=== PATIENT | female | born 1990 | race Caucasian/White ===

== ENCOUNTER 2017-10-21 23:49 | Inpatient (IN) | payer OTHER ==
[2017-10-22] MEDS ORDERED: LR 1,000 ML IV (01:04)
[2017-10-22] MEDS: LACTATED RINGER'S 1000 ML IV (01:15)
[2017-10-22] MEDS: PENICILLIN G POTASSIUM IV 5 MU in D5W MINI-BAG PLUS 100 ML IV (01:30)
[2017-10-22 01:31] LABS: HEMATOCRIT 35.5 % (36.0-47.0); HEMOGLOBIN 11.8 g/dl (12.0-15.5); MEAN CORPUSCULAR HEMOGLOBIN 28.5 pg (27.0-33.0); MEAN CORPUSCULAR HGB CONC 33.2 g/dl (32.0-36.5); MEAN CORPUSCULAR VOLUME 85.7 fl (80.0-96.0); PLATELET COUNT, AUTOMATED 255 10^3/uL (150-450); RED BLOOD COUNT 4.14 10^6/uL (4.00-5.40); RED CELL DISTRIBUTION WIDTH 13.5 % (11.5-14.5); WHITE BLOOD COUNT 11.2 10^3/uL (4.0-10.0)
[2017-10-22] MEDS ORDERED: PENICILLIN G POTASSIUM 5 MU VIAL As Ordered (01:38)
[2017-10-22] MEDS ORDERED: FENTANYL 2MCG/ML ROPIVACAINE 0.2% IN 0.9% NACL 200ML IVBAG As Ordered (03:10)
[2017-10-22] MEDS ORDERED: OXYTOCIN 30 UNITS IN 0.9% NaCl 500ML IV BAG (J2590) As Ordered (05:28)
[2017-10-22] MEDS ORDERED: PENICILLIN G POTASSIUM IV 2.5 MU in APPROPRIATE DILUENT 1 EA IV (05:30)
[2017-10-22 07:13] LABS: CORD GAS ABE V -9.2; CORD GAS HCO3 V 20.1 MEQ/L; CORD GAS O2 SAT V 37.5 %; CORD GAS PH V 7.172 UNITS; CORD GAS PO2 V 23.3 mmHg; CORD GAS SBC V 15.9 MEQ/L; CORD GAS TCO2 V 21.8 MEQ/L
[2017-10-22 07:15] LABS: CORD GAS ABE A -14.2; CORD GAS HCO3 A 18.1 MEQ/L; CORD GAS O2 SAT A 27.2 %; CORD GAS PCO2 A 71.8 mmHg; CORD GAS PH A 7.019 UNITS; CORD GAS PO2 A 22.9 mmHg; CORD GAS SBC A 12.5 MEQ/L; CORD GAS TCO2 A 20.3 MEQ/L
[2017-10-22] MEDS ORDERED: OXYTOCIN DRIP 30 UNITS in APPROPRIATE DILUENT 1 EA IV (07:59)
[2017-10-22] MEDS ORDERED: METHYLERGONOVINE MALEATE 0.2 MG TAB PO (08:00)
[2017-10-22] MEDS ORDERED: MEASLES,MUMPS,RUBELLA VACCINE INJ (MMR-II) (90707) SC (08:00)
[2017-10-22] MEDS ORDERED: MOM 30ML SUSPENSION UDC PO (08:00)
[2017-10-22] MEDS ORDERED: OXYTOCIN INJ 10 UNITS/ML VIAL (J2590) IV (08:00)
[2017-10-22] MEDS ORDERED: ANUSOL HC CREAM 30GM TOP (08:00)
[2017-10-22] MEDS ORDERED: RHOGAM 300 MCG (1500 IU) INJ (J2790) IM (08:00)
[2017-10-22] MEDS: IBUPROFEN 800 MG TAB PO ×2 (11:51→23:02)
[2017-10-22] MEDS ORDERED: OXYTOCIN INJ 10 UNITS/ML VIAL (J2590) As Ordered (15:45)
[2017-10-22] MEDS: ACETAMINOPHEN 500 MG TAB PO ×2 (15:51→23:03)
[2017-10-22] MEDS: DOCUSATE SODIUM 100 MG CAP PO (19:42)
[2017-10-22] MEDS: PRENATAL VITAMINS CHEWABLE TABLET PO (19:42)
[2017-10-22] MEDS: DIBUCAINE 1% OINTMENT 30GM TOP (19:58)
[2017-10-23 07:20] LABS: MEAN CORPUSCULAR HEMOGLOBIN 29.2 pg (27.0-33.0); MEAN CORPUSCULAR HGB CONC 33.3 g/dl (32.0-36.5); MEAN CORPUSCULAR VOLUME 87.5 fl (80.0-96.0); PLATELET COUNT, AUTOMATED 220 10^3/uL (150-450); RED BLOOD COUNT 3.43 10^6/uL (4.00-5.40); WHITE BLOOD COUNT 13.9 10^3/uL (4.0-10.0)
[2017-10-23] MEDS: PRENATAL VITAMINS CHEWABLE TABLET PO (08:39)
[2017-10-23] MEDS: IBUPROFEN 800 MG TAB PO ×2 (08:40→22:54)
[2017-10-23] MEDS: ACETAMINOPHEN 500 MG TAB PO (15:34)
[2017-10-24] MEDS: ACETAMINOPHEN 500 MG TAB PO ×2 (02:30→15:15)
[2017-10-24] MEDS: IBUPROFEN 800 MG TAB PO (08:18)
[2017-10-24] MEDS: PRENATAL VITAMINS CHEWABLE TABLET PO (09:00)
== END 2017-10-24 15:20 | disposition home or self-care (01) | DRG 767 ==
LOC: M LDO 23:49 → M LDI 10-22 00:30 → M OBS 10-22 09:03
PROVIDERS: Obstetrics & Gynecology
PROC: 3E0S3GC Introduction of Other Therapeutic Substance into Epidural Space, Percutaneous Approach (ICD-10-PCS; 2017-10-24 11:30)
DX: O99.824 Streptococcus B carrier state complicating childbirth (principal); O73.0 Retained placenta without hemorrhage; Z3A.37 37 weeks gestation of pregnancy; O69.1XX0 Labor and delivery complicated by cord around neck, with compression, not applicable or unspecified; O76 Abnormality in fetal heart rate and rhythm complicating labor and delivery; O74.5 Spinal and epidural anesthesia-induced headache during labor and delivery; O99.355 Diseases of the nervous system complicating the puerperium; G43.909 Migraine, unspecified, not intractable, without status migrainosus; O71.4 Obstetric high vaginal laceration alone; Z37.0 Single live birth

== ENCOUNTER → 2018-08-10 | Outpatient (CLI) | payer OTHER ==
[~2018-08-10] MED LIST: COLA100C5 PO; MILK120011 PO; MOTR200T44 PO; NUPE1OIN2 TOP; PREN1TAB14 PO; PROC2.5C TOP; TYLE500T78 PO
--- NOTE | 2018-08-10 11:02 | REP ---
MR BRAIN WITHOUT CONTRAST: HISTORY: Skull tenderness. There are no areas of abnormal signal intensity of the brain. There is no intraparenchymal hemorrhage, infarct, mass, or midline shift. The ventricular system is normal in appearance. There is no extracerebral collection. There is no definite calvarial abnormality. The visualized sinuses are clear. IMPRESSION: There is no intracranial lesion. CT brain may be helpful for further evaluation of the calvarium if clinically indicated. Electronically Signed by Ruddy Coronel MD 08/10/2018 11:07 A
== END ==
LOC: M RAD 09:03
PROVIDERS: ATTEND Family Medicine
DX: R51 Headache (principal)

== ENCOUNTER 2018-10-01 08:01 | Emergency (ER) | payer OTHER ==
[~2018-10-01] VITALS: Ht 162.6 cm; Wt 79.5 kg
[2018-10-01 09:08] LABS: APPEARANCE, URINE CLEAR (CLEAR); BACTERIA, URINE AUTO NEGATIVE (NEGATIVE); BILIRUBIN, URINE AUTO NEGATIVE (NEGATIVE); BLOOD, URINE BLOOD NEGATIVE (NEGATIVE); COLOR, URINE YELLOW (YELLOW); GLUCOSE, URINE (UA) AUTO NEGATIVE (NEGATIVE); KETONE, URINE AUTO NEGATIVE (NEGATIVE); LEUKOCYTE ESTERASE, URINE AUTO NEGATIVE (NEGATIVE); MUCUS, URINE SMALL (NEGATIVE); NITRITE, URINE AUTO NEGATIVE (NEGATIVE); PROTEIN, URINE AUTO NEGATIVE (NEGATIVE); RBC, URINE AUTO 0 /HPF (0-3); SPECIFIC GRAVITY URINE AUTO 1.006 (1.002-1.035); SQUAMOUS EPITHELIAL CELL UR AU 3 /HPF (0-6); UROBILINOGEN, URINE AUTO 0.2 mg/dL (0.0-2.0); WBC, URINE AUTO 1 /HPF (0-3)
[2018-10-01 09:38] LABS: BASO % 0.5 % (0.0-1.0); EOS # 0.1 10^3/uL (0.0-0.50); EOS % 1.2 % (0.0-3.0); HEMOGLOBIN 12.4 g/dl (12.0-15.5); LYMPH # 1.8 10^3/uL (1.5-6.5); LYMPH % 22.2 % (24.0-44.0); MEAN CORPUSCULAR HEMOGLOBIN 29.5 pg (27.0-33.0); MEAN CORPUSCULAR HGB CONC 32.6 g/dl (32.0-36.5); MEAN CORPUSCULAR VOLUME 90.3 fl (80.0-96.0); MONO # 0.5 10^3/uL (0.0-0.8); MONO % 6.3 % (0.0-5.0); NEUTROPHILS # 5.7 10^3/uL (1.8-7.7); NEUTROPHILS % 69.2 % (36.0-66.0); PLATELET COUNT, AUTOMATED 289 10^3/uL (150-450); RED BLOOD COUNT 4.21 10^6/uL (4.00-5.40); WHITE BLOOD COUNT 8.2 10^3/uL (4.0-10.0)
[2018-10-01 10:23] LABS: BLOOD UREA NITROGEN 8 MG/DL (7-18); CALCIUM LEVEL 8.6 MG/DL (8.5-10.1); CARBON DIOXIDE LEVEL 25 MEQ/L (21-32); CHLORIDE LEVEL 105 MEQ/L (98-107); CREATININE FOR GFR 0.67 MG/DL (0.55-1.30); GLOMERULAR FILTRATION RATE > 60.0 (>60); GLUCOSE, FASTING 91 MG/DL (70-100); HCG, SERUM QUANTITATIVE 38027 MIU/ML; POTASSIUM SERUM 4.1 MEQ/L (3.5-5.1); SODIUM LEVEL 136 MEQ/L (136-145)
[2018-10-01] MEDS ORDERED: ACETAMINOPHEN 500 MG TAB PO ONE (11:15)
--- NOTE | 2018-10-01 12:06 | REP ---
Obstetric sonography: History: Abdomen pain. Findings: Transabdominal scanning demonstrates a single living intrauterine gestation. heart rate is documented 122 beats per minute. Leaf-rump length of the embryonic pole is 9 mm. This corresponds with a 1-yzyj-0-day gestational age estimate. There is a 1.9 cm anechoic area in the maternal right ovary consistent with corpus luteum. Impression: Viable single intrauterine gestation at 6-week 6 days by crown-rump length. PONCHO by sonography May 21, 2019. No complication is identified. Electronically Signed by Frandy Hylton MD 10/01/2018 11:58 A
[2018-10-01 12:51] VITALS: BP 119/67
== END 2018-10-01 12:55 | disposition home or self-care (01) ==
LOC: M ED 08:01
DX: O26.891 Other specified pregnancy related conditions, first trimester (principal); R10.2 Pelvic and perineal pain; Z87.891 Personal history of nicotine dependence; Z3A.01 Less than 8 weeks gestation of pregnancy

== ENCOUNTER 2019-03-08 21:59 | Outpatient (CLI) | payer OTHER ==
[~2019-03-08] VITALS: Ht 162.6 cm; Wt 92.0 kg
[2019-03-08 22:19] VITALS: BP 134/80
[2019-03-08 22:38] VITALS: BP 110/57
[2019-03-08 23:46] LABS: APPEARANCE, URINE CLEAR (CLEAR); BACTERIA, URINE AUTO NEGATIVE (NEGATIVE); BILIRUBIN, URINE AUTO NEGATIVE (NEGATIVE); BLOOD, URINE BLOOD NEGATIVE (NEGATIVE); COLOR, URINE STRAW (YELLOW); GLUCOSE, URINE (UA) AUTO NEGATIVE (NEGATIVE); KETONE, URINE AUTO NEGATIVE (NEGATIVE); LEUKOCYTE ESTERASE, URINE AUTO NEGATIVE (NEGATIVE); NITRITE, URINE AUTO NEGATIVE (NEGATIVE); PROTEIN, URINE AUTO NEGATIVE (NEGATIVE); RBC, URINE AUTO 0 /HPF (0-3); SPECIFIC GRAVITY URINE AUTO 1.004 (1.002-1.035); SQUAMOUS EPITHELIAL CELL UR AU 1 /HPF (0-6); UROBILINOGEN, URINE AUTO 0.2 mg/dL (0.0-2.0); WBC, URINE AUTO 0 /HPF (0-3)
--- NOTE | 2019-03-09 00:01 | IPNPDOC ---
Text Note Date of Service The patient was seen on 03/08/19. NOTE Triage Note Denise is a 29yo with SIUP at 29w3d by 7wk u/s presents tonight for a few complaints. She has had back pain all day that she describes as both constant and intermittent. She was instructed by triage nurse to try a warm bath and after she got out she had an episode of leaking from the vagina, clear. She called the pager and I encouraged her to put a melly-pad on and walk around. She had no further leaking after that. However, she notes increasing lower abdominal discomfort and "chills" earlier as well as a headache that has been going on for 2 days. When asked about burning with urination she states no burning but some "discomfort". When asked about vaginal discharge she states it has been thick and white and she did notice some irritation recently but attributed it to her soap. She has felt good movement. No vaginal bleeding. No contractions. No fevers. 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 She does have a yeast infection based on VALENCIA/WP. Vitals wnl, exam otherwise benign. Reassuring status. Plan: -Paper script given for 2% clotrimazole vaginal cream x3 days -Tylenol prn, warm showers. Hydration encouraged. -Patient to continue with routine OB care, keep next scheduled appt -Safe for discharge home Dr. Kim Scott MD VS,Bobo, I+O VSBobo I+O Vital Signs Date Time Temp Pulse Resp B/P (MAP) Pulse Ox O2 Delivery O2 Flow Rate FiO2 03/08/19 22:38 93 110/57 (74) 03/08/19 22:19 98.0 Kim Scott MD Mar 08, 2019 23:46
--- NOTE | 2019-03-09 00:35 | REPVR ---
PROCEDURE INFORMATION: Exam: US , Transvaginal Exam date and time: 03/08/2019 11:47 PM Age: 29 years old Clinical indication: complicated by abdominal or pelvic pain; Other: BACK; Gestational age or LMP: 30; ; Additional Info: abdominal discomfort, soft cervix 50% effaced 29wk TECHNIQUE: Imaging protocol: Real-time transvaginal obstetrical ultrasound of the maternal pelvis and a first trimester with image documentation. Transvaginal imaging was used for better evaluation of the fetus and adnexa. COMPARISON: No relevant prior studies available. FINDINGS: GESTATION: Gestation: Single live intrauterine gestation. Gestation was not fully evaluated. anatomical survey was not performed. Heart rate: heart rate measures 133 bpm. Presentation: Fetus in vertex position. MATERNAL: Cervix: Cervix is long and closed. Cervix measures 3.2 cm in length. There is no funneling of the internal cervical os. IMPRESSION: 1. Single live intrauterine gestation. 2. Cervix is long and closed. Electronically signed by: Gianni Kong On 03/09/2019 00:35:32 AM
== END 2019-03-09 00:15 | disposition home or self-care (01) ==
LOC: M LDO 21:59
PROVIDERS: ATTEND Obstetrics & Gynecology
DX: O26.893 Other specified pregnancy related conditions, third trimester (principal); M54.9 Dorsalgia, unspecified; O23.593 Infection of other part of genital tract in pregnancy, third trimester; Z3A.29 29 weeks gestation of pregnancy
CPT/HCPCS: 59025; 76817; 81001; G0378; G0463

== ENCOUNTER 2019-03-10 12:57 | Outpatient (CLI) | payer OTHER ==
[~2019-03-10] VITALS: Ht 162.6 cm; Wt 93.6 kg
[2019-03-10] MEDS ORDERED: LACTATED RINGER'S 1000 ML IV STA (13:09)
[2019-03-10 13:15] VITALS: BP 110/69
[2019-03-10 13:42] LABS: BASO # 0.1 10^3/uL (0.0-0.2); BASO % 0.5 % (0.0-1.0); HEMATOCRIT 39.4 % (36.0-47.0); HEMOGLOBIN 12.7 g/dl (12.0-15.5); LYMPH # 0.6 10^3/uL (1.5-5.0); LYMPH % 5.4 % (24.0-44.0); MEAN CORPUSCULAR HEMOGLOBIN 28.7 pg (27.0-33.0); MEAN CORPUSCULAR HGB CONC 32.2 g/dl (32.0-36.5); MEAN CORPUSCULAR VOLUME 88.9 fl (80.0-96.0); MONO # 0.5 10^3/uL (0.0-0.8); MONO % 4.1 % (0.0-5.0); NEUTROPHILS # 9.7 10^3/uL (1.5-8.5); NEUTROPHILS % 87.2 % (36.0-66.0); PLATELET COUNT, AUTOMATED 216 10^3/uL (150-450); RED BLOOD COUNT 4.43 10^6/uL (4.00-5.40); WHITE BLOOD COUNT 11.1 10^3/uL (4.0-10.0)
[2019-03-10 13:44] LABS: APPEARANCE, URINE CLEAR (CLEAR); BACTERIA, URINE AUTO 1+ (NEGATIVE); BILIRUBIN, URINE AUTO NEGATIVE (NEGATIVE); BLOOD, URINE BLOOD NEGATIVE (NEGATIVE); COLOR, URINE YELLOW (YELLOW); GLUCOSE, URINE (UA) AUTO NEGATIVE (NEGATIVE); KETONE, URINE AUTO 2+ mg/dL (NEGATIVE); LEUKOCYTE ESTERASE, URINE AUTO NEGATIVE (NEGATIVE); NITRITE, URINE AUTO NEGATIVE (NEGATIVE); PROTEIN, URINE AUTO NEGATIVE (NEGATIVE); RBC, URINE AUTO 0 /HPF (0-3); SPECIFIC GRAVITY URINE AUTO 1.009 (1.002-1.035); SQUAMOUS EPITHELIAL CELL UR AU 5 /HPF (0-6); UROBILINOGEN, URINE AUTO 0.2 mg/dL (0.0-2.0); WBC, URINE AUTO 1 /HPF (0-3)
[2019-03-10] MEDS ORDERED: PROMETHAZINE INJ 25 MG/ML VIAL (J2550) IV ONE (14:00)
[2019-03-10 14:05] LABS: ALBUMIN 3.1 GM/DL (3.2-5.2); ALT/SGPT 14 U/L (12-78); AMYLASE 59 U/L (25-115); BILIRUBIN,TOTAL 0.6 MG/DL (0.2-1.0); BLOOD UREA NITROGEN 5 MG/DL (7-18); CALCIUM LEVEL 8.3 MG/DL (8.5-10.1); CARBON DIOXIDE LEVEL 23 MEQ/L (21-32); CHLORIDE LEVEL 105 MEQ/L (98-107); CREATININE FOR GFR 0.53 MG/DL (0.55-1.30); GLOMERULAR FILTRATION RATE > 60.0 (>60); GLUCOSE, FASTING 86 MG/DL (70-100); LIPASE 118 U/L (73-393); POTASSIUM SERUM 3.6 MEQ/L (3.5-5.1); SODIUM LEVEL 136 MEQ/L (136-145); TOTAL PROTEIN 7.1 GM/DL (6.4-8.2)
--- NOTE | 2019-03-10 19:48 | IPNPDOC ---
Text Note Date of Service The patient was seen on 03/10/19. NOTE S: Ms. Travis is a 29yo at 29+5wks who presents to LND triage with c/o N/V/D. She states she started having emesis episodes yesterday at noon and has been unable to hold down any liquids; diarrhea started today at noon and she has had three episodes. She states her spouse had gastroenteritis over the past few days and now she is feeling the same. She reports +FM, denies LOF/VB/CTX. O: VSS, afebrile FHR 110, moderate variability, + accels, no decels noted CTX: possibly one on monitor, pt denies, CBC and CMP WNL UA: 2+ ketones A: 29yo at 29+5wks with gastroenteritis and subsequent dehydration. Reactive tracing and overall reassuring status. 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
== END 2019-03-10 14:35 | disposition home or self-care (01) ==
LOC: M LDO 12:57
PROVIDERS: ATTEND Registered Nurse Maternal Newborn
DX: O99.613 Diseases of the digestive system complicating pregnancy, third trimester (principal); K52.9 Noninfective gastroenteritis and colitis, unspecified; O99.283 Endocrine, nutritional and metabolic diseases complicating pregnancy, third trimester; E86.0 Dehydration; Z3A.29 29 weeks gestation of pregnancy
CPT/HCPCS: 80053; 81001; 82150; 83690; 85025; 96374; G0378; G0463

== ENCOUNTER 2019-05-10 01:13 | Outpatient (CLI) | payer OTHER ==
[~2019-05-10] VITALS: Ht 162.6 cm; Wt 99.1 kg
--- NOTE | 2019-05-10 02:49 | IPNPDOC ---
Text Note Date of Service The patient was seen on 05/10/19. NOTE Patient is 29yo G 2 P 1 at 38.2wks by 7wk US C/o ctx q3min. No loss of fluid or bleeding. Good movement. FHT: Category 1, 130, reactive, no decels. contractions [id number]. SVE 05/12/-3. Fetus reassuring. Patient not in labor and no rupture of membranes. It was discussed with the patient that she is likely in latent labor and given strict labor precautions. Patient given labor precautions, rupture of membranes precautions and kick counts. She has a follow up appt on 1week. Marly Ordaz MD May 10, 2019 02:49
== END 2019-05-10 02:45 | disposition home or self-care (01) ==
LOC: M LDO 01:13
PROVIDERS: ATTEND Obstetrics & Gynecology
DX: O47.1 False labor at or after 37 completed weeks of gestation (principal); Z3A.38 38 weeks gestation of pregnancy; Z79.899 Other long term (current) drug therapy
CPT/HCPCS: 59025; G0378; G0463

== ENCOUNTER 2019-05-10 05:39 | Inpatient (IN) | payer OTHER ==
[~2019-05-10] VITALS: Ht 162.6 cm; Wt 99.1 kg
[2019-05-10] VITALS (8 sets, daily range): BP systolic 116–140; BP diastolic 57–87
[2019-05-10] MEDS ORDERED: LACTATED RINGER'S 1000 ML IV STA (06:44)
[2019-05-10] MEDS ORDERED: ACETAMINOPHEN 500 MG TAB PO PRN (06:45)
[2019-05-10] MEDS ORDERED: BUTORPHANOL 2 MG/ML INJ (J0595) IV PRN (06:45)
[2019-05-10] MEDS ORDERED: PROMETHAZINE INJ 25 MG/ML VIAL (J2550) IV PRN (06:45)
[2019-05-10] MEDS ORDERED: CALCIUM CARBONATE 500 MG CHEW U/D PO PRN (06:45)
[2019-05-10] MEDS ORDERED: SIMETHICONE 80 MG CHEW TAB PO PRN (06:45)
--- NOTE | 2019-05-10 06:57 | HPEPDOC ---
Obstetrical History & Physical General Date of Admission May 10, 2019 at 06:15 History of Present Illness Patient is a 28-year-old G 2, P1 at 38.5 weeks by 7 week dating ultrasound. She presents with contractions since 11 PM every 3-5 minutes. No loss of fluid or bleeding or vaginal discharge. She denies headaches or visual changes or right upper quadrant pain. Good movement. 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: Abnormal Pap (ASCUS +HPV) Past Medical History Medical History None Surgical History: Denies/None Family History Significant Family History: No pertinent family hx Social History Marital Status: Family situation: Spouse/partner home Psychosocial History: Other (High EPDS screen) * Smoker: non-smoker Alcohol: Denies Abuse Violence Screening Have you been hit/kicked/slapp: No Have you been sexually assault: No Imunizations Tdap status: current Influenza Status: current Allergies Coded Allergies: No Known Allergies (Unverified , 10/22/17) Medications Scheduled Vits96/Iron Fum/Folic ( Tablet) 1 Tab Tab, 1 TAB PO DAILY Scheduled PRN Acetaminophen (Tylenol Extra Strength) 500 Mg Tab, 1,000 MG PO Q6HP PRN for MILD PAIN (PS 1-4) Physical Examination Physical Examination GENERAL: Alert and oriented times three. BREAST: . ABDOMEN: Gravid and non-tender to touch. FETUS: Is vertex (VTX) by sterile vaginal examination (SVE), fetus is vertex (VTX) by Jose Manuel and SVE, EFW 3700gm. HEART RATE: Regular rate and rhythm. LUNGS: Clear to auscultation (CTA). EXTREMITIES: No edema. Vital Signs/I&O Vital Signs Date Time Temp Pulse Resp B/P (MAP) Pulse Ox O2 Delivery O2 Flow Rate FiO2 05/10/19 05:59 97.8 108 16 137/75 (95) Laboratory Data 24H LABS Laboratory Tests 2 05/10/19 06:23: Serology Scanned Report Hepatitis B Testing Urine Culture: Contaminated Pertinent Laboratoy Data Blood Type: O+ RBC Antibody Screen: Negative HIV: Negative Hepatitis B: Negative Rapid Plasma Reagin: Nonreactive Rubella: Immune Varicella: Immune Chlamydia/Gonorrhea: Negative Group B Streptococcus: Negative Glucose Tolerance Test: 92 Anatomy Ultrasound Ultrasound Date: Dec 30, 2018 Placenta Location: Anterior Normal Anatomy: Yes Placenta Previa: No Estimated Weight (grams): 341 Steroid Therapy Steroid Therapy: No Vaginal Examination Dilation: 5 cm Effacement: 50% Station: -2 Assessment Heart Rate (FHR): 130 Variability: Moderate Accelerations: Positive Decelerations: None Tocometer Contractions: Yes Frequency: regular, every 2-5 min. Multi-drug resistant Organism: No history of MDRO Assessment/Plan Assessment Patient is a 28-year-old G 2, P1 at 38.5 weeks by 7 week dating ultrasound. Admit for labor and expect delivery by . Pain management per patient preference, which was discussed with her. I discussed risks of with patient of failure with section, distress, bleeding, infection, , vaginal or perineal or neighboring organ tear. Currently, fetus is reassuring. GBS is negative, no need for antibiotics. Plan Admit and orient. Warm In Worker and consent. Diet: Clear. Group B Streptococcus (GBS) negative. Labs and intravenous (IV) per unit protocol. Counseled on Pitocin and induction of labor (IOL). Lactated Ringers (LR): Bolus 500 mL, then at, 125 mL/hr. Anticipate normal spontaneous delivery (). Pain management per patient request. Marly Ordaz MD May 10, 2019 06:57
[2019-05-10] MEDS ORDERED: LR 1,000 ML IV SCH (07:00)
[2019-05-10 07:32] LABS: BASO # 0.1 10^3/uL (0.0-0.2); BASO % 0.5 % (0.0-1.0); EOS % 0.3 % (0.0-3.0); HEMATOCRIT 36.4 % (36.0-47.0); HEMOGLOBIN 12.1 g/dl (12.0-15.5); LYMPH # 1.5 10^3/uL (1.5-5.0); LYMPH % 10.4 % (24.0-44.0); MEAN CORPUSCULAR HEMOGLOBIN 28.5 pg (27.0-33.0); MEAN CORPUSCULAR HGB CONC 33.2 g/dl (32.0-36.5); MEAN CORPUSCULAR VOLUME 85.8 fl (80.0-96.0); MONO # 0.8 10^3/uL (0.0-0.8); MONO % 5.6 % (0.0-5.0); NEUTROPHILS # 11.7 10^3/uL (1.5-8.5); NEUTROPHILS % 80.2 % (36.0-66.0); PLATELET COUNT, AUTOMATED 232 10^3/uL (150-450); RED BLOOD COUNT 4.24 10^6/uL (4.00-5.40); WHITE BLOOD COUNT 14.6 10^3/uL (4.0-10.0)
[2019-05-10] MEDS ORDERED: FENTANYL 2MCG/ML ROPIVACAINE 0.2% IN 0.9% NACL 100ML IVBAG As Ordered ONE (07:43)
[2019-05-10] MEDS ORDERED: diphenhydrAMINE INJ 50MG/ML VIAL (J1200) IV PRN (09:00)
[2019-05-10] MEDS ORDERED: ePHEDrine SULFATE 25 MG/5 ML(5MG/ML) SYRINGE IV PRN (09:00)
[2019-05-10] MEDS ORDERED: ONDANSETRON 4MG/2ML VIAL (J2405) IV PRN (09:00)
[2019-05-10] MEDS ORDERED: LACTATED RINGER'S 1000 ML IV PRN (09:00)
[2019-05-10] MEDS ORDERED: REFRIGERATOR IV KEYS XX PRN (09:00)
[2019-05-10] MEDS ORDERED: EPIDURAL/PCA KEYS XX PRN (09:00)
[2019-05-10] MEDS ORDERED: NALOXONE INJ 0.4 MG/1 ML VIAL (J2310) IV PRN (09:00)
[2019-05-10] MEDS ORDERED: FENTANYL/ROPIVACAINE/NACL BAG 100 ML EPIDURAL SCH (09:00)
[2019-05-10] MEDS ORDERED: EPIDURAL COMMENT XX SCH (09:00)
[2019-05-10] MEDS ORDERED: OXYTOCIN 30 UNITS IN 0.9% NaCl 500ML IV BAG (J2590) As Ordered ONE (12:11)
[2019-05-10] MEDS ORDERED: OXYTOCIN DRIP 30 UNITS in IV 1 EA IV SCH (12:26)
[2019-05-10] MEDS ORDERED: DOCUSATE SODIUM 100 MG CAP PO PRN (12:30)
[2019-05-10] MEDS ORDERED: MEASLES,MUMPS,RUBELLA VACCINE INJ (MMR-II) (90707) SC SCH (12:30)
[2019-05-10] MEDS ORDERED: RHOGAM 300 MCG (1500 IU) INJ (J2790) IM SCH (12:30)
[2019-05-10] MEDS ORDERED: DIBUCAINE 1% OINTMENT 30GM TOP PRN (12:30)
--- NOTE | 2019-05-10 12:38 | DNPDOC ---
[facility] Delivery Note Delivery Note DATE OF DELIVERY: 05/10/2019 PREDELIVERY DIAGNOSIS: 38+2/7 weeks' gestation and labor. POST DELIVERY DIAGNOSIS: Delivered. PROCEDURE: Spontaneous vaginal delivery [employer] GLAZER: Dr. Cooper Cintron DO ANESTHESIA: Epidural ESTIMATED BLOOD LOSS: 250 mL. FINDINGS: 3750gm, Male , Score 7/9, left compound hand. DELIVERY SUMMARY: Patient feeling pressure. Cervix checked to be c/c/+1. With good maternal effort, baby delivered OA, restituted LOT. Left compound hand delivered with arm and posterior shoulder. Anterior shoulder delivered, body followed with ea se. Baby placed on maternal abdomen. Cord allowed to stop pulsating. Cord clamped x 2 and cut by FOB. Pitocin bolus started. Cord blood collected for routine lab. Placenta delivered spontaneously. Fundus massaged firm. Inspection revealed first degree midline laceration repaired with interrupted 3- 0 vicryl. Baby and mother bonding when I left the room. DO CITLALLI Cintron LUAT N. DO May 10, 2019 12:38
[2019-05-10] MEDS: IBUPROFEN 800 MG TAB PO PRN (17:38)
[2019-05-11] MEDS: IBUPROFEN 800 MG TAB PO PRN ×3 (01:59→19:46)
[2019-05-11 06:00] VITALS: BP 112/61
--- NOTE | 2019-05-11 06:52 | IPNPDOC ---
Progress Note Date of Service: May 11, 2019 Day#: 2 Progress Note SUBJECT: Patient is a 29 yo s/p ppd #1. Patient without concern today. She has been ambulating, voiding spontaneously without issue and tolerating regular diet. Breast feeding without issue. Reports lochia is light. Undecided on contraceptive. Baby will have circumcision today. OBJECTIVE: VITAL SIGNS: Within normal limits, afebrile. Alert and oriented times three. Abdomen: Fundus firm at U-2. Soft, NTTP. LE: mild non pitting bilateral edema. A/P ppd #1, doing well. encourage BF. contraceptive counseling. routine ppc. discharge pending baby discharge. VS, I&O, 24H, Fishbone Vital Signs/I&O Vital Signs Date Time Temp Pulse Resp B/P (MAP) Pulse Ox O2 Delivery O2 Flow Rate FiO2 05/10/19 18:07 99.7 113 18 133/64 (87) I&O- Last 24 Hours up to 6 AM 05/11/19 06:00 Intake Total 1967 ml Output Total 650 ml Balance 1317 ml Laboratory Data 24H LABS Laboratory Tests 2 05/10/19 07:07: Immature Granulocyte % (Auto) 3.0, Neutrophils (%) (Auto) 80.2H, Lymphocytes (%) (Auto) 10.4L, Monocytes (%) (Auto) 5.6H, Eosinophils (%) (Auto) 0.3, Basophils (%) (Auto) 0.5, Neutrophils # (Auto) 11.7H, Lymphocytes # (Auto) 1.5, Monocytes # (Auto) 0.8, Eosinophils # (Auto) 0.0, Basophils # (Auto) 0.1, Nucleated Red Blood Cells % (auto) 0.0 CBC/BMP Laboratory Tests 05/10/19 07:07 BASSEM LENNON DO May 11, 2019 06:52
[2019-05-11] MEDS: ACETAMINOPHEN TAB 650MG DOSE (2X325MG) PO PRN (07:40)
[2019-05-11] MEDS ORDERED: PRENATAL VITAMINS CHEWABLE TABLET PO SCH (09:00)
[2019-05-11 17:47] VITALS: BP 132/75
[2019-05-12] MEDS: ACETAMINOPHEN TAB 650MG DOSE (2X325MG) PO PRN ×2 (00:19→10:17)
[2019-05-12] MEDS: IBUPROFEN 800 MG TAB PO PRN ×2 (05:12→13:25)
[2019-05-12 05:49] VITALS: BP 130/80
--- NOTE | 2019-05-12 07:43 | IPNPDOC ---
Progress Note Date of Service: May 12, 2019 Day#: 2 Progress Note PPD 2 SUBJECT: Denise is a 29yo [id number] s/p uncomplicated on 05/10, doing well day # 2. She has been ambulating, voiding spontaneously without issue and tolerating regular diet. Breast feeding without issue. Reports lochia is like a normal period. No f/c/n/v/CP/SOB. OBJECTIVE: VITAL SIGNS: Within normal limits, afebrile. Alert and oriented times three. Abdomen: Fundus firm at U-2. Soft, NTTP. Extremities: no edema of BLE ASSESSMENT: Denise is a 29yo [id number] s/p uncomplicated on 05/10, doing well day # 2. Vitals within normal limits, afebrile, hemodynamically stable with no evidence of infection. PLAN: 1. Discharge to home today. 2. Tylenol and Motrin for pain. 3. Encourage breast feeding and ambulation. 4. Desires Mirena IUD for contraception 5. Routine PP visit in 6 weeks in clinic. 6. Discussed return precautions at length. Dr. Kim Scott MD VS, I&O, 24H, Fishbone Vital Signs/I&O Vital Signs Date Time Temp Pulse Resp B/P (MAP) Pulse Ox O2 Delivery O2 Flow Rate FiO2 05/12/19 05:49 97.8 80 18 130/80 (97) 99 Room Air Kim Scott MD May 12, 2019 07:43
[2019-05-12] MEDS ORDERED: IBUP80TA PO (07:45)
--- NOTE | 2019-05-12 07:46 | OBDS ---
[facility] Obstetrical Discharge Sum. Obstetrical Discharge Summary Police Commanding Officer/Provider: BASSEM LENNON DO : 2 Term: 2 Pre-term: 0 Abortions: 0 Livin VDRL: Non-Reactive Rh: Positive Rubella: Immune Infant Sex: Male Weight: grams (3750) Anesthesia: Regional Anesthesia A/P, Post Course List any complications Admission diagnosis: Labor at 38+5wks gestation Discharge diagnosis: () Condition at Discharge: stable Discharge Instructions: Home Activity: as tolerated Diet: regular Medications: filled at [facility]. [facility] Follow-up: 6 weeks Hospital course: Patient admitted to for labor. She progressed to have a spontaneous vaginal delivery. First degree laceration repaired. course uncomplicated and patient discharged on day 2. At time of discharge vitals were wnl, benign exam, patient doing well. MD CITLALLI Maxwell LUAT N. DO May 11, 2019 06:59 Kim Scott MD May 12, 2019 07:46
== END 2019-05-12 14:20 | disposition home or self-care (01) | DRG 807 ==
LOC: M LDO 05:39 → M LDI 06:15 → M OBS 15:27
PROVIDERS: ADMIT Obstetrics & Gynecology; ATTEND Obstetrics & Gynecology
PROC: 10E0XZZ Delivery of Products of Conception, External Approach (ICD-10-PCS; principal; 2019-05-10)
PROC: 0HQ9XZZ Repair Perineum Skin, External Approach (ICD-10-PCS; 2019-05-10)
DX: O64.5XX0 Obstructed labor due to compound presentation, not applicable or unspecified (principal); Z37.0 Single live birth; Z3A.38 38 weeks gestation of pregnancy; O70.0 First degree perineal laceration during delivery

== ENCOUNTER 2019-06-14 04:07 | Inpatient (IN) | payer OTHER ==
[~2019-06-14] VITALS: Ht 162.6 cm; Wt 84.3 kg
[~2019-06-14 04:07] MED LIST changes: +IBUP80TA PO
[2019-06-14] MEDS ORDERED: MORPHINE 4 MG/ML 1ML VIAL/SYRINGE (J2270) As Ordered ONE (04:46)
[2019-06-14] MEDS ORDERED: ONDANSETRON 4MG/2ML VIAL (J2405) As Ordered ONE (04:46)
[2019-06-14 04:57] LABS: BASO % 0.4 % (0.0-1.0); EOS # 0.3 10^3/uL (0.0-0.5); EOS % 3.7 % (0.0-3.0); HEMOGLOBIN 13.4 g/dl (12.0-15.5); LYMPH # 1.8 10^3/uL (1.5-5.0); LYMPH % 24.5 % (24.0-44.0); MEAN CORPUSCULAR HEMOGLOBIN 27.7 pg (27.0-33.0); MEAN CORPUSCULAR HGB CONC 31.9 g/dl (32.0-36.5); MEAN CORPUSCULAR VOLUME 86.8 fl (80.0-96.0); MONO # 0.8 10^3/uL (0.0-0.8); MONO % 11.5 % (0.0-5.0); NEUTROPHILS # 4.3 10^3/uL (1.5-8.5); NEUTROPHILS % 59.5 % (36.0-66.0); PLATELET COUNT, AUTOMATED 302 10^3/uL (150-450); RED BLOOD COUNT 4.84 10^6/uL (4.00-5.40); WHITE BLOOD COUNT 7.2 10^3/uL (4.0-10.0)
[2019-06-14] MEDS ORDERED: NS 1,000 ML IV ONE (05:00)
[2019-06-14] MEDS ORDERED: ONDANSETRON 4MG/2ML VIAL (J2405) IV ONE (05:00)
[2019-06-14] MEDS ORDERED: MORPHINE 4 MG/ML 1ML VIAL/SYRINGE (J2270) IV ONE (05:00)
[2019-06-14 05:34] LABS: ALBUMIN 3.7 GM/DL (3.2-5.2); ALT/SGPT 827 U/L (12-78); BILIRUBIN,DIRECT 1.5 MG/DL (0.0-0.2); BILIRUBIN,TOTAL 1.9 MG/DL (0.2-1.0); BLOOD UREA NITROGEN 14 MG/DL (7-18); CALCIUM LEVEL 8.7 MG/DL (8.5-10.1); CARBON DIOXIDE LEVEL 28 MEQ/L (21-32); CHLORIDE LEVEL 108 MEQ/L (98-107); CREATININE FOR GFR 0.76 MG/DL (0.55-1.30); GLOMERULAR FILTRATION RATE > 60.0 (>60); GLUCOSE, FASTING 91 MG/DL (70-100); LIPASE 33372 U/L (73-393); SODIUM LEVEL 141 MEQ/L (136-145); TOTAL PROTEIN 7.2 GM/DL (6.4-8.2)
--- NOTE | 2019-06-14 05:47 | REPVR ---
PROCEDURE INFORMATION: Exam: US Abdomen Limited, Right Upper Quadrant Exam date and time: 06/14/2019 5:34 AM Age: 29 years old Clinical indication: Abdominal pain; Acute; Additional info: Ruq abd pain TECHNIQUE: Imaging protocol: Real-time ultrasound of the abdomen with image documentation. Examination was focused on the right upper quadrant. COMPARISON: No relevant prior studies available. FINDINGS: Liver: The liver is normal in size and echogenicity. No focal lesions are identified. Gallbladder: There are multiple small, mobile, shadowing stones in the gallbladder. There is equivocal mild gallbladder wall thickening. Gallbladder wall thickness measured between 0.25 and 0.37 cm in thickness. There is no pericholecystic fluid. Common bile duct: There is mild biliary ductal dilation. The common bile duct measures 7 mm in diameter. No definite choledocholithiasis is identified. Pancreas: The pancreas appears unremarkable. No ductal dilation. The head of the pancreas was partially obscured, however. Right kidney: The right kidney is normal in size and echogenicity with no hydronephrosis or stones identified. The right kidney measures 10.9 cm in length. IMPRESSION: 1. Cholelithiasis with multiple small, mobile stones in the gallbladder. Borderline thickness of the gallbladder wall. No pericholecystic fluid. 2. Mild biliary ductal dilation, measuring up to 7 mm. No definite choledocholithiasis identified. Electronically signed by: Joanie Kong On 06/14/2019 05:46:59 AM
[2019-06-14] MEDS ORDERED: IBUP1TAB7 PO (06:32)
[2019-06-14] MEDS ORDERED: ACET-897 PO (06:32)
[2019-06-14] MEDS ORDERED: MULTTAB20 PO (06:33)
[2019-06-14] MEDS ORDERED: BENG1CRE3 EXT (06:33)
[2019-06-14] MEDS ORDERED: MAALOX 30 ML SUSP *UDC PO PRN (06:45)
[2019-06-14] MEDS ORDERED: MORPHINE 2 MG/ML 1ML VIAL (J2270) IV PRN (06:45)
[2019-06-14] MEDS ORDERED: ONDANSETRON 4MG/2ML VIAL (J2405) IV PRN (06:45)
[2019-06-14] MEDS ORDERED: MOM 30ML SUSPENSION UDC PO PRN (06:45)
--- NOTE | 2019-06-14 06:47 | HPEPDOC ---
General Date of Admission Jun 14, 2019 at 06:32 Date of Service: Jun 14, 2019 Chief Complaint The patient is a 29-year-old female admitted with a reason for visit of Choledocolithiasis,Pancreatitis. Source: Patient Exam Limitations: No limitations Timing/Duration: Day(s) (2) Severity: Moderate Associated Symptoms: Loss of appetite, Nausea, Vomiting History of Present Illness 29-year-old female with no relevant past history, recent pregnancies 4 weeks ago presents with abdominal pain radiating to her back for the past 2 days. She states that she was at home when pain started she describes the pain as a boring sensation to her back that hat tstarted initially in her epigastric area. She says that she has intermittent pain as well in the right upper flank however that has thus resolved with past when 4 hours. She says her symptoms are associated with nausea, vomiting with approximately 8 episodes of vomiting in the past 48 hours. She denies any recent fevers, chills, she was of breath, chest pain, diarrhea, constipation. Patient has never had issues with gallstones in the past. 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 She was a former smoker but quit 3 years ago. She occasionally drinks and has no history of IV drug abuse. Her most recent was 4 weeks ago and she delivered a healthy baby boy. However she states that during her she was having intermittent abdominal pains over somewhat different from her prior pregnancies in the past. Upon ER evaluation, ultrasound of the abdomen revealed multiple gallstones. Laboratory work consistent with possible choledocholithiasis with elevated AST ALT and alkaline phosphatase. Lipase is also elevated as well which is consistent with diagnosis of pancreatitis. Patient to be admitted for further evaluation. Home Medications Scheduled No122/Iron/Folic Acid ( Multi Tablet) 1 Each Tablet, 1 TAB PO DAILY, (Reported) Scheduled PRN Acetaminophen (Tylenol Extra Strength) 500 Mg Tablet, 1,000 MG PO Q6H PRN for PAIN, (Reported) Ibuprofen (Ibuprofen) 800 Mg Tablet, 800 MG PO Q8H PRN for PAIN, (Reported) Methyl Salicylate/Menthol (Bengay Greaseless Cream) 57 Gm Cream..g., 1 DOSE EXT QID PRN for PAIN, (Reported) USES ON BACK NEEDED FOR PAIN Allergies Coded Allergies: No Known Allergies (Unverified , 8/2/18) Past Medical History Surgical History No surgical procedures Family History Significant Family History: Gallbladder, Hypertension Mother has gallstones, hypertension, diabetes Patient does not know her father. 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 Dependent on ADLs and IADLs. Lives with and family. A-FIB/CHADSVASC A-FIB History Current/History of A-Fib/PAF?: No Review of Systems Constitutional: Denies: Chills, Fever, Malaise, Night Sweats, Weakness Eyes: Denies: Pain ENT: Denies: Head Aches, Dysphagia, Sore Throat Skin: Denies: Rash, Lesions Pulmonary: Denies: Dyspnea, Cough, Pleuritic Chest Pain Cardiovascular: Denies: Chest Pain, Palpitations, Orthopnea, Edema, Lt Headedness Gastrointestinal: Reports: Nausea, Vomiting, Abdominal Pain, Other Symptoms (pain radiates to her back); Denies: Diarrhea, Constipation, Melena Genitourinary: Denies: Dysuria, Frequency, Incontinence Hematologic: Denies: Bruising Musculoskeletal: Denies: Neck Pain, Shoulder Pain, Joint Pain, Muscle Pain Neurological: Denies: Weakness, Numbness, Change in speech, Confusion Psych: Reports: Mood Normal Physical Examination General Exam: Positive: Alert, Cooperative, No Acute Distress Eye Exam: Positive: PERRLA, Conjunctiva & lids normal, EOMI ENT Exam: Positive: Atraumatic, Mucous membr. moist/pink, Pharynx Normal Neck Exam: Positive: Supple, +2 carotid pulse wo bruit; Negative: JVD, thyromegaly Chest Exam: Positive: Clear to auscultation, Normal air movement; Negative: Rales, Wheezing Heart Exam: Positive: Rate Normal, Regular Rhythm, Normal S1, Normal S2; Negative: Murmurs Abdomen Exam: Positive: Normal bowel sounds, Soft, Tenderness; Negative: Hepatospenomegaly (mild tenderness palpation of the epigastric area) Extremity Exam: Negative: Clubbing, Cyanosis, Edema Skin Exam: Positive: Nl turgor and temperature; Negative: Breakdown Neuro Exam: Positive: Normal Gait, Normal Speech, Strength at 5/5 X4 ext, Normal Tone, Sensation Intact Psych Exam: Positive: Mental status NL Vital Signs Vital Signs Date Time Temp Pulse Resp B/P (MAP) Pulse Ox O2 Delivery O2 Flow Rate FiO2 06/14/19 05:02 14 06/14/19 04:27 06/14/19 04:09 97.1 86 99 Room Air Laboratory Data Labs 24H Laboratory Tests 2 06/14/19 04:28: Immature Granulocyte % (Auto) 0.4, Neutrophils (%) (Auto) 59.5, Lymphocytes (%) (Auto) 24.5, Monocytes (%) (Auto) 11.5H, Eosinophils (%) (Auto) 3.7H, Basophils (%) (Auto) 0.4, Neutrophils # (Auto) 4.3, Lymphocytes # (Auto) 1.8, Monocytes # (Auto) 0.8, Eosinophils # (Auto) 0.3, Basophils # (Auto) 0.0, Nucleated Red Blood Cells % (auto) 0.0, Anion Gap 5L, Glomerular Filtration Rate > 60.0, Calcium Level 8.7, Total Bilirubin 1.9H, Direct Bilirubin 1.5H, Aspartate Amino Transf (AST/SGOT) 1112H, Alanine Aminotransferase (ALT/SGPT) 827H, Alkaline Phosphatase 355H, Total Protein 7.2, Albumin 3.7, Albumin/Globulin Ratio 1.06, Lipase 16281O CBC/BMP Laboratory Tests 06/14/19 04:28 RAD Interpretation STUDY: ultrasound abdomen Rad Actions: Report Reviewed RAD Interpretation: Other Result Comments: (gallstones present, cannot exclude choledocholithiasis on basis of the study.) Assessment/Plan 29-year-old female with no medical history presents with gallstone pancreatitis. Patient also met component of choledocholithiasis based on her lab work. Currently she remained stable and feels well but is still having some nausea and vomiting while in the ER. Patient will need to undergo MRCP at this time to show no stone is present in the ducts and patient will also likely need surgical evaluation to see if gallbladder needs removal, during this admission. Will admit for IV fluids, pain control, MRCP, possible surgical eval. 1. Abdominal pain likely secondary to gallstone pancreatitis Patient has elevated lipase levels above 30,000 abdominal pain is consistent with pancreatic titers clinically. We'll keep nothing by mouth for now and continue with aggressive IV fluid resuscitation at this time. - Continue with IV fluids at 150 mL per hour normal saline - Pain control when necessary with morphine m- switched to by mouth pain control as soon as possible - Zofran for nausea - Nothing by mouth for now, we'll consider advancing diet in 24 hours 2. Elevated transaminitis likely due to choledocholithiasis Patient has elevated LFTs nearing 1000 and elevated alkaline phosphatase with known gallstones as evidenced on ultrasound. Ultrasound did not show CBD stone so may have passed. We'll obtain MRCP today for further evaluation. - MRCP today - Follow up GI consults if ERCP is necessary based on results of the MRCP - Surgical consults were appropriate to decide whether gallbladder needs to be removed on this admission - obtain hepatitis panel Plan / VTE VTE Prophylaxis Ordered?: Yes Plan IVF: Initiate Diet: Make NPO Activity: Continue Current Diagnostics: MRI Anticipated Discharge: Home TONY PENG MD Jun 14, 2019 06:47
[2019-06-14 08:15] VITALS: BP 132/86
[2019-06-14] MEDS: NS 1,000 ML IV SCH ×3 (08:30→20:44)
[2019-06-14 08:31] LABS: CHOLESTEROL RISK RATIO 2.5 (<5)
--- NOTE | 2019-06-14 08:57 | REP ---
MRCP WITHOUT CONTRAST: HISTORY: Gallstone pancreatitis. Suspect choledocholithiasis. COMPARISON SONOGRAPHY: June 14, 2019. TECHNIQUE: Axial and coronal T2-weighted scans were obtained. MRCP acquisition is acquired and maximal intensity projection images are generated and reviewed. MRCP FINDINGS: Cholelithiasis is confirmed with numerous tiny gallstones seen in the lumen of the gallbladder. The gallbladder is not dilated. There is mild pericholecystic fluid. There is some fluid adjacent the head of the pancreas and within the head of the pancreas. This is consistent with a history of pancreatitis. The common bile duct is mildly dilated measuring 7 mm in greatest diameter. No intrahepatic ductal dilation is seen. There is no evidence of choledocholithiasis. IMPRESSION: Cholelithiasis. Borderline CBD, 7 mm. No MRCP evidence of choledocholithiasis. Electronically Signed by Frandy Hylton MD 06/14/2019 10:22 A
[2019-06-14] MEDS: ACETAMINOPHEN TAB 650MG DOSE (2X325MG) PO PRN ×2 (09:05→14:07)
--- NOTE | 2019-06-14 12:19 | IPNPDOC ---
Text Note Date of Service The patient was seen on 06/14/19. NOTE Subjective: Patient is a 29 year old female with no significant PMHx who presented to the ER complaints of abdominal pain radiating to her back for about 2 days. Patient reports that she had associated nausea / vomiting. Upon arrival to the ER patient was found to have an elevated lipase level suggestive of pancreatitis. She was also noted to have gallstones within the gallbladder. She was admitted to the hospitalist service for further evaluation and treatment. Patient was seen and examined at the bedside. Currently patient reports that her abdominal pain is well controlled with current medications. Denies any N/V, CP, SOB or palpitations at this time. Denies any diarrhea or urinary discomfort. Objective: Vitals (See below) General: Lying in bed, no acute distress, comfortable, AAOx3 HEENT: NC, AT CVS: +S1S2 Lungs: Fair air entry b/l, no appreciable wheezing / rhonchi / rales Abdomen: Soft, ND, mild epigastric tenderness Extremities: - Edema, - Calf tenderness Assessment and plan: Abdominal - likely 2/2 pancreatitis - likely 2/2 gallstones - Presented to the ER with complaints of abdominal pain, associated with nausea / vomiting - Currently reports improvement in abdominal pain - Mild epigastric tenderness - Elevated lipase / ETOH negative / Triglycerides negative - US abdomen 06/13: 1. Cholelithiasis with multiple small, mobile stones in the gallbladder. Borderline thickness of the gallbladder wall. No pericholecystic fluid. 2. Mild biliary ductal dilation, measuring up to 7 mm. No definite choledocholithiasis identified. - MRI abdomen 06/13: Cholelithiasis. Borderline CBD, 7 mm. No MRCP evidence of choledocholithiasis. - Possibility of recently passed stone - Will repeat lab work - c/w aggressive IV fluid hydration - c/w symptomatic control for morphine / anti-emetics Elevated AST / ALT - likely 2/2 passed stone, less likely 2/2 hepatitis - Hepatitis profile pending DVT prophylaxis - Will start Lovenox VS,Fishbone, I+O VS, Fishbone, I+O Laboratory Tests 06/14/19 04:28 Vital Signs Date Time Temp Pulse Resp B/P (MAP) Pulse Ox O2 Delivery O2 Flow Rate FiO2 06/14/19 08:15 97.6 76 18 132/86 (101) 98 Room Air DIANA GAMBLE MD Jun 14, 2019 12:19
[2019-06-14 13:34] LABS: ALBUMIN 3.4 GM/DL (3.2-5.2); ALT/SGPT 758 U/L (12-78); BILIRUBIN,TOTAL 0.7 MG/DL (0.2-1.0); BLOOD UREA NITROGEN 11 MG/DL (7-18); CALCIUM LEVEL 8.6 MG/DL (8.5-10.1); CARBON DIOXIDE LEVEL 25 MEQ/L (21-32); CHLORIDE LEVEL 112 MEQ/L (98-107); CREATININE FOR GFR 0.61 MG/DL (0.55-1.30); GLOMERULAR FILTRATION RATE > 60.0 (>60); GLUCOSE, FASTING 71 MG/DL (70-100); MAGNESIUM LEVEL 1.9 MG/DL (1.8-2.4); POTASSIUM SERUM 3.9 MEQ/L (3.5-5.1); SODIUM LEVEL 142 MEQ/L (136-145); TOTAL PROTEIN 6.4 GM/DL (6.4-8.2)
[2019-06-14 14:00] VITALS: BP 139/89
[2019-06-14] MEDS: ENOXAPARIN 40 MG/0.4 ML SYRINGE (J1650) SC SCH (14:00)
[2019-06-15] VITALS: BP 109/64
[2019-06-15] MEDS: ACETAMINOPHEN TAB 650MG DOSE (2X325MG) PO PRN ×3 (01:38→16:19)
[2019-06-15] MEDS: NS 1,000 ML IV SCH (04:45)
[2019-06-15 06:15] LABS: HEMATOCRIT 39.7 % (36.0-47.0); HEMOGLOBIN 12.5 g/dl (12.0-15.5); MEAN CORPUSCULAR HEMOGLOBIN 28.2 pg (27.0-33.0); MEAN CORPUSCULAR HGB CONC 31.5 g/dl (32.0-36.5); MEAN CORPUSCULAR VOLUME 89.4 fl (80.0-96.0); PLATELET COUNT, AUTOMATED 238 10^3/uL (150-450); RED BLOOD COUNT 4.44 10^6/uL (4.00-5.40); WHITE BLOOD COUNT 6.1 10^3/uL (4.0-10.0)
[2019-06-15 06:39] LABS: ALBUMIN 3.3 GM/DL (3.2-5.2); ALT/SGPT 520 U/L (12-78); BILIRUBIN,TOTAL 0.8 MG/DL (0.2-1.0); BLOOD UREA NITROGEN 11 MG/DL (7-18); CALCIUM LEVEL 8.6 MG/DL (8.5-10.1); CARBON DIOXIDE LEVEL 16 MEQ/L (21-32); CHLORIDE LEVEL 111 MEQ/L (98-107); CREATININE FOR GFR 0.57 MG/DL (0.55-1.30); GLOMERULAR FILTRATION RATE > 60.0 (>60); GLUCOSE, FASTING 54 MG/DL (70-100); POTASSIUM SERUM 3.8 MEQ/L (3.5-5.1); SODIUM LEVEL 141 MEQ/L (136-145); TOTAL PROTEIN 6.4 GM/DL (6.4-8.2)
[2019-06-15 08:36] LABS: HEPATITIS B SURFACE ANTIBODY POSITIVE (POSITIVE)
[2019-06-15 08:47] LABS: HEPATITIS B SURFACE ANTIGEN NEGATIVE (NEGATIVE)
--- NOTE | 2019-06-15 08:59 | IPNPDOC ---
Text Note Date of Service The patient was seen on 06/15/19. NOTE Subjective: Patient is a 29 year old female with no significant PMHx who presented to the ER complaints of abdominal pain radiating to her back for about 2 days. Patient reports that she had associated nausea / vomiting. Upon arrival to the ER patient was found to have an elevated lipase level suggestive of pancreatitis. She was also noted to have gallstones within the gallbladder. She was admitted to the hospitalist service for further evaluation and treatment. Patient was seen and examined at the bedside. Patient reports she experienced some abdominal discomfort over night. Currently denies any abdominal pain. Reports no nausea / vomiting. Has indicated she has an appetite and would like to eat. Denies any CP, SOB or palpitations. No urinary discomfort. Objective: Vitals (See below) General: Lying in bed, no acute distress, comfortable, AAOx3 HEENT: NC, AT CVS: +S1S2 Lungs: Air entry is fair bilaterally, no rhonchi / rales / wheezing appreciated on auscultation Abdomen: Remains soft without distention / tenderness Extremities: No evidence of LE edema, - Calf tenderness Assessment and plan: Abdominal - likely 2/2 pancreatitis - likely 2/2 gallstones - likely recently passed stone - Presented to the ER with complaints of abdominal pain, associated with nausea / vomiting - Today she reports no abdominal pain, physical is without tenderneess - Lipase had trended down / ETOH negative / Triglycerides negative - US abdomen 06/13: 1. Cholelithiasis with multiple small, mobile stones in the gallbladder. Borderline thickness of the gallbladder wall. No pericholecystic fluid. 2. Mild biliary ductal dilation, measuring up to 7 mm. No definite choledocholithiasis identified. - MRI abdomen 06/13: Cholelithiasis. Borderline CBD, 7 mm. No MRCP evidence of choledocholithiasis. - Will DC IV fluid hydration - c/w symptomatic control for morphine / anti-emetics - Will advance diet to clear liquids; will continue to advance as tolerated Elevated AST / ALT - likely 2/2 passed stone, less likely 2/2 hepatitis - Liver enzymes have trended down - Hepatitis profile partially pending; Hep Bs Antibody present - likely 2/2 immunization DVT prophylaxis - c/w Lovenox Disposition: - Anticipate discharge tomorrow AM if tolerating diet VS,Fishbone, I+O VS, Fishbone, I+O Laboratory Tests 06/14/19 12:28 06/15/19 05:55 Vital Signs Date Time Temp Pulse Resp B/P (MAP) Pulse Ox O2 Delivery O2 Flow Rate FiO2 06/15/19 00:00 97.4 72 18 109/64 (79) 96 Room Air I&O- Last 24 Hours up to 6 AM 06/15/19 06:00 Intake Total 1000 ml Output Total 700 ml Balance 300 ml DIANA GAMBLE MD Jun 15, 2019 08:59
[2019-06-15 09:00] VITALS: BP 142/84
[2019-06-15 09:11] LABS: HEPATITIS A ANTIBODY IGM NEGATIVE (NEGATIVE)
[2019-06-15] MEDS: ENOXAPARIN 40 MG/0.4 ML SYRINGE (J1650) SC SCH (09:34)
[2019-06-15] MEDS: PANTOPRAZOLE 40MG INJ (PROTONIX) (C9113) IV SCH (09:34)
[2019-06-15 14:00] VITALS: BP 122/79
[2019-06-15 22:00] VITALS: BP 121/75
[2019-06-16] MEDS: ACETAMINOPHEN TAB 650MG DOSE (2X325MG) PO PRN ×2 (00:51→10:04)
[2019-06-16 06:00] VITALS: BP_SYST 123; BP_SYST 136; BP_DIAS 80
[2019-06-16 07:11] LABS: HEMOGLOBIN 12.4 g/dl (12.0-15.5); MEAN CORPUSCULAR HEMOGLOBIN 28.6 pg (27.0-33.0); MEAN CORPUSCULAR HGB CONC 32.6 g/dl (32.0-36.5); MEAN CORPUSCULAR VOLUME 87.6 fl (80.0-96.0); PLATELET COUNT, AUTOMATED 263 10^3/uL (150-450); RED BLOOD COUNT 4.34 10^6/uL (4.00-5.40); WHITE BLOOD COUNT 6.7 10^3/uL (4.0-10.0)
[2019-06-16 07:44] LABS: ALBUMIN 3.2 GM/DL (3.2-5.2); ALT/SGPT 332 U/L (12-78); BILIRUBIN,TOTAL 0.7 MG/DL (0.2-1.0); BLOOD UREA NITROGEN 9 MG/DL (7-18); CALCIUM LEVEL 8.8 MG/DL (8.5-10.1); CARBON DIOXIDE LEVEL 24 MEQ/L (21-32); CHLORIDE LEVEL 110 MEQ/L (98-107); CREATININE FOR GFR 0.58 MG/DL (0.55-1.30); GLOMERULAR FILTRATION RATE > 60.0 (>60); GLUCOSE, FASTING 87 MG/DL (70-100); POTASSIUM SERUM 3.6 MEQ/L (3.5-5.1); SODIUM LEVEL 140 MEQ/L (136-145); TOTAL PROTEIN 6.8 GM/DL (6.4-8.2)
[2019-06-16] MEDS: ENOXAPARIN 40 MG/0.4 ML SYRINGE (J1650) SC SCH (07:58)
[2019-06-16] MEDS: PANTOPRAZOLE 40MG INJ (PROTONIX) (C9113) IV SCH (08:50)
--- NOTE | 2019-06-16 10:59 | DS.PDOC ---
Discharge Summary General Date of Admission Jun 14, 2019 at 06:32 Date of Discharge 06/16/2019 Discharge Summary PROCEDURES PERFORMED DURING STAY: [None]. ADMITTING DIAGNOSES / DISCHARGE DIAGNOSES: Abdominal - likely 2/2 pancreatitis - likely 2/2 gallstones - likely recently passed stone Elevated AST / ALT - likely 2/2 passed stone, less likely 2/2 hepatitis DVT prophylaxis COMPLICATIONS/CHIEF COMPLAINT: Abdominal pain HISTORY OF PRESENT ILLNESS: Patient is a 29 year old female with no significant PMHx who presented to the ER complaints of abdominal pain radiating to her back for about 2 days. Patient reports that she had associated nausea / vomiting. Upon arrival to the ER patient was found to have an elevated lipase level suggestive of pancreatitis. She was also noted to have gallstones within the gallbladder. She was admitted to the hospitalist service for further evaluation and treatment. HOSPITAL COURSE: Abdominal - likely 2/2 pancreatitis - likely 2/2 gallstones - likely recently passed stone - Presented to the ER with abdominal pain, associated with nausea / vomiting; Currently has had full resolution of symptoms - tolerating her diet, no nausea or vomiting - Physical with no abdominal tenderness - Lipase had trended down / ETOH negative / Triglycerides negative - US abdomen 06/13: 1. Cholelithiasis with multiple small, mobile stones in the gallbladder. Borderline thickness of the gallbladder wall. No pericholecystic fluid. 2. Mild biliary ductal dilation, measuring up to 7 mm. No definite choledocholithiasis identified. - MRI abdomen 06/13: Cholelithiasis. Borderline CBD, 7 mm. No MRCP evidence of choledocholithiasis. - s/p IV fluid hydration - c/w symptomatic control for Tylenol alone; s/p morphine / c/w anti-emetics - Diet advanced and tolerated - Will have outpatient follow up with [facility] and surgery within 7 days Elevated AST / ALT - likely 2/2 passed stone, less likely 2/2 hepatitis - Liver enzymes continue to improve - Hep Bs Antibody present - likely 2/2 immunization DVT prophylaxis - c/w Lovenox DISCHARGE MEDICATIONS: Please see below. ALLERGIES: Please see below. PHYSICAL EXAMINATION ON DISCHARGE: Vitals (See below) General: Lying in bed, comfortable, AAOx3 HEENT: NC, AT CVS: +S1S2 Lungs: There appears to be fair entry b/l, no rhonchi / rales / wheezing Abdomen: Soft, ND, non tenderness appreciated at any of the 4 quadrants Extremities: LE are again free of pitting edema, - Calf tenderness LABORATORY DATA: Please see below. ACTIVITY: [As tolerated]. DISCHARGE PLAN: Follow up with [facility] and Surgery within 7 days Remain compliant with treatment plan and medications Return to the ER if you experience any problems DISPOSITION: Home DISCHARGE CONDITION: [Stable]. TIME SPENT ON DISCHARGE: 35 minutes Vital Signs/I&Os Vital Signs Date Time Temp Pulse Resp B/P (MAP) Pulse Ox O2 Delivery O2 Flow Rate FiO2 06/16/19 06:00 98.0 76 17 123/80 (94) 97 Room Air I&O- Last 24 Hours up to 6 AM 06/16/19 05:59 Intake Total 2410 ml Output Total 1350 ml Balance 1060 ml Laboratory Data Labs 24H Laboratory Tests 2 06/16/19 06:50: Nucleated Red Blood Cells % (auto) 0.0, Anion Gap 6L, Glomerular Filtration Rate > 60.0, Calcium Level 8.8, Total Bilirubin 0.7, Aspartate Amino Transf (AST/SGOT) 81H, Alanine Aminotransferase (ALT/SGPT) 332H, Alkaline Phosphatase 245H, Total Protein 6.8, Albumin 3.2, Albumin/Globulin Ratio 0.89L CBC/BMP Laboratory Tests 06/16/19 06:50 Discharge Medications Scheduled No122/Iron/Folic Acid ( Multi Tablet) 1 Each Tablet, 1 TAB PO DAILY, (Reported) Scheduled PRN Acetaminophen (Tylenol Extra Strength) 500 Mg Tablet, 1,000 MG PO Q6H PRN for PAIN, (Reported) Ibuprofen (Ibuprofen) 800 Mg Tablet, 800 MG PO Q8H PRN for PAIN, (Reported) Methyl Salicylate/Menthol (Bengay Greaseless Cream) 57 Gm Cream..g., 1 DOSE EXT QID PRN for PAIN, (Reported) USES ON BACK NEEDED FOR PAIN Allergies Coded Allergies: No Known Allergies (Unverified , 10/22/17) DIANA GAMBLE MD Jun 16, 2019 10:59
== END 2019-06-16 11:30 | disposition home or self-care (01) | DRG 776 ==
LOC: M ED 04:07 → M ED INP 06:32 → ENRESERVDT 07:02 → ENRESERVTM 07:02 → M PED 08:40 → M MS5PR 06-15 12:57
PROVIDERS: ADMIT Internal Medicine; ATTEND Internal Medicine
DX: O99.63 Diseases of the digestive system complicating the puerperium (principal); K85.10 Biliary acute pancreatitis without necrosis or infection; Z87.891 Personal history of nicotine dependence; K80.20 Calculus of gallbladder without cholecystitis without obstruction

== ENCOUNTER 2019-06-24 00:54 | Emergency (ER) | payer OTHER ==
[~2019-06-24] VITALS: Ht 162.6 cm; Wt 81.8 kg
[~2019-06-24 00:54] MED LIST changes: +ACET-897 PO; +BENG1CRE3 EXT; +IBUP1TAB7 PO; +MULTTAB20 PO
[2019-06-24] MEDS ORDERED: MORPHINE 4 MG/ML 1ML VIAL/SYRINGE (J2270) IV ONE (01:45)
[2019-06-24] MEDS ORDERED: METOCLOPRAMIDE INJ 10MG/2ML VIAL (J2765) IV ONE (01:45)
[2019-06-24] MEDS ORDERED: NS 1,000 ML IV ONE (01:45)
[2019-06-24 01:51] LABS: BASO # 0.1 10^3/uL (0.0-0.2); EOS # 0.2 10^3/uL (0.0-0.5); EOS % 2.6 % (0.0-3.0); HEMATOCRIT 40.1 % (36.0-47.0); LYMPH # 2.7 10^3/uL (1.5-5.0); LYMPH % 32.9 % (24.0-44.0); MEAN CORPUSCULAR HEMOGLOBIN 28.3 pg (27.0-33.0); MEAN CORPUSCULAR HGB CONC 32.4 g/dl (32.0-36.5); MEAN CORPUSCULAR VOLUME 87.2 fl (80.0-96.0); MONO # 0.7 10^3/uL (0.0-0.8); MONO % 8.1 % (0.0-5.0); NEUTROPHILS # 4.5 10^3/uL (1.5-8.5); PLATELET COUNT, AUTOMATED 301 10^3/uL (150-450); WHITE BLOOD COUNT 8.2 10^3/uL (4.0-10.0)
[2019-06-24 01:55] LABS: APPEARANCE, URINE CLEAR (CLEAR); BACTERIA, URINE AUTO NEGATIVE (NEGATIVE); BILIRUBIN, URINE AUTO NEGATIVE (NEGATIVE); BLOOD, URINE BLOOD NEGATIVE (NEGATIVE); COLOR, URINE YELLOW (YELLOW); GLUCOSE, URINE (UA) AUTO NEGATIVE (NEGATIVE); KETONE, URINE AUTO NEGATIVE (NEGATIVE); LEUKOCYTE ESTERASE, URINE AUTO NEGATIVE (NEGATIVE); MUCUS, URINE SMALL (NEGATIVE); NITRITE, URINE AUTO NEGATIVE (NEGATIVE); PROTEIN, URINE AUTO NEGATIVE (NEGATIVE); RBC, URINE AUTO 1 /HPF (0-3); SPECIFIC GRAVITY URINE AUTO 1.024 (1.002-1.035); SQUAMOUS EPITHELIAL CELL UR AU 0 /HPF (0-6); UROBILINOGEN, URINE AUTO 0.2 mg/dL (0.0-2.0); WBC, URINE AUTO 5 /HPF (0-3)
[2019-06-24 02:16] LABS: ALBUMIN 3.8 GM/DL (3.2-5.2); ALT/SGPT 99 U/L (12-78); BILIRUBIN,DIRECT 0.3 MG/DL (0.0-0.2); BILIRUBIN,TOTAL 0.4 MG/DL (0.2-1.0); BLOOD UREA NITROGEN 15 MG/DL (7-18); CALCIUM LEVEL 9.3 MG/DL (8.5-10.1); CARBON DIOXIDE LEVEL 28 MEQ/L (21-32); CHLORIDE LEVEL 109 MEQ/L (98-107); CREATININE FOR GFR 0.79 MG/DL (0.55-1.30); GLOMERULAR FILTRATION RATE > 60.0 (>60); GLUCOSE, FASTING 87 MG/DL (70-100); LIPASE 291 U/L (73-393); POTASSIUM SERUM 4.3 MEQ/L (3.5-5.1); SODIUM LEVEL 139 MEQ/L (136-145); TOTAL PROTEIN 7.3 GM/DL (6.4-8.2)
--- NOTE | 2019-06-24 02:20 | REPVR ---
PROCEDURE INFORMATION: Exam: US Abdomen Limited, Right Upper Quadrant Exam date and time: 06/24/2019 2:13 AM Age: 29 years old Clinical indication: Abdominal pain; Epigastric; Additional info: Gb pain eval TECHNIQUE: Imaging protocol: Real-time ultrasound of the abdomen with image documentation. Examination was focused on the right upper quadrant. COMPARISON: GALLBLADDER US 06/14/2019 5:18 AM FINDINGS: Liver: The liver demonstrates no focal defects. Gallbladder: Gallstones are noted in the gallbladder. There is no wall thickening measuring 2 mm and there is a negative sono Peck's sign. Common bile duct: The CBD is slightly distended measuring 7-8 mm. Pancreas: The pancreas is normal. Right kidney: The right kidney measures 10.2 cm and demonstrates no hydronephrosis. IMPRESSION: 1. Cholelithiasis with no gallbladder wall thickening and there is a negative sono Peck's sign. 2. Mildly dilated CBD measuring 7-8 mm. Electronically signed by: Edin Ruiz On 06/24/2019 02:20:53 AM
[2019-06-24 03:07] VITALS: BP 84/51
--- NOTE | 2019-06-24 12:25 | ED PDOC ---
Post-Departure Follow-Up dr ambrosio and ft allison cuello faxed formal report of abdl us for fu Dylan Ocampo MD Jun 24, 2019 12:25
== END 2019-06-24 03:19 | disposition home or self-care (01) ==
LOC: M ED 00:54
DX: K80.20 Calculus of gallbladder without cholecystitis without obstruction (principal)
CPT/HCPCS: 76705; 80048; 80076; 81001; 83690; 85025; 96361; 96374; 96375; 99284; J2270; J2765

== ENCOUNTER → 2019-07-16 | Outpatient (CLI) | payer OTHER ==
[~2019-07-16] MED LIST changes: +BCP PO
== END ==
LOC: M LABSMTC 11:01
PROVIDERS: ATTEND Anesthesiology
DX: Z01.818 Encounter for other preprocedural examination (principal); Z11.59 Encounter for screening for other viral diseases

== ENCOUNTER 2019-07-19 10:14 | Day surgery (SDC) | payer OTHER ==
[~2019-07-19] VITALS: Ht 162.6 cm; Wt 81.6 kg
[~2019-07-19 10:14] MED LIST changes: +LR 1,000 ML IV ONE; +ceFAZolin SOD 2 GM in IV 1 EA IV ONE
[2019-07-19] MEDS ORDERED: ROCURONIUM BROMIDE 50 MG/5 ML VIAL As Ordered ONE (10:37)
[2019-07-19] MEDS ORDERED: LIDOCAINE 2% 100MG/5ML SDV (FOR ANES.) As Ordered ONE (10:37)
[2019-07-19] MEDS ORDERED: fentaNYL 250 MCG/5 ML INJECTION (J3010) As Ordered ONE (10:37)
[2019-07-19] MEDS ORDERED: propofoL 200 MG/20 ML VIAL As Ordered ONE (10:37)
[2019-07-19] MEDS ORDERED: SUCCINYLCHOLINE 100 MG/5 ML SYRINGE (J0330) As Ordered ONE (10:37)
[2019-07-19] MEDS ORDERED: MIDAZOLAM INJ 2MG/2ML VIAL (J2250 PER 1MG) As Ordered ONE (10:38)
[2019-07-19] MEDS ORDERED: BUPIVACAINE HCL 0.25% 30ML VIAL As Ordered ONE (10:40)
[2019-07-19] MEDS ORDERED: CONRAY-60 60% 50ML VIAL (Q9961) As Ordered ONE (10:40)
[2019-07-19] MEDS ORDERED: SCOPOLAMINE 1MG TRANSDERMAL PATCH As Ordered ONE (11:45)
[2019-07-19] MEDS ORDERED: SCOPOLAMINE 1MG TRANSDERMAL PATCH TOP ONE (12:00)
[2019-07-19] MEDS ORDERED: dexameTHASONE 4 MG/ML 1ML VIAL (J1100 PER 1MG) As Ordered ONE ×2 (12:10→13:18)
[2019-07-19] MEDS ORDERED: ONDANSETRON 4MG/2ML VIAL As Ordered ONE (12:10)
[2019-07-19] MEDS ORDERED: SUGAMMADEX SODIUM 500 MG/5 ML VIAL (BRIDION) As Ordered ONE (12:11)
[2019-07-19] MEDS ORDERED: PHENYLephrine HCL 500 MCG/5 ML (100MCG/ML) SYRINGE (J2370) As Ordered ONE (12:18)
[2019-07-19] MEDS ORDERED: ePHEDrine SULFATE 25 MG/5 ML(5MG/ML) SYRINGE As Ordered ONE (12:18)
[2019-07-19] MEDS ORDERED: ACETAMINOPHEN 1000MG 100ML IV BTL (OFIRMEV) (J0131 PER 10MG) As Ordered ONE (12:19)
[2019-07-19] MEDS ORDERED: DESFLURANE 240 ML INHALANT As Ordered ONE (12:41)
[2019-07-19] MEDS ORDERED: METOCLOPRAMIDE INJ 10MG/2ML VIAL (J2765 PER 1) As Ordered ONE (13:51)
[2019-07-19] MEDS ORDERED: LR 1,000 ML IV SCH (14:00)
[2019-07-19] MEDS ORDERED: METOCLOPRAMIDE INJ 10MG/2ML VIAL (J2765 PER 1) IV PRN (14:00)
[2019-07-19] MEDS ORDERED: fentaNYL 100 MCG/2 ML INJECTION (J3010) IV PRN (14:00)
[2019-07-19] MEDS ORDERED: ONDANSETRON 4MG/2ML VIAL IV PRN (14:00)
--- NOTE | 2019-07-19 14:57 | REP ---
C-ARM VIEWS DURING INTRAOPERATIVE CHOLANGIOGRAPHY: Seven C-arm views are performed during intraoperative cholangiography. Metallic clips are seen in the gallbladder fossa. Contrast is injected into the common bile duct, which appears normal in caliber with no persistent filling defect or stricture. There is free flow of contrast in the duodenum. No intrahepatic biliary dilatation is seen. Fluoroscopy time is 17 seconds. Electronically Signed by Jose Mai MD 07/19/2019 03:24 P
[2019-07-19 15:25] VITALS: BP 124/81
--- NOTE | 2019-07-20 16:02 | RO ---
DATE OF PROCEDURE: 07/19/2019 PREOPERATIVE DIAGNOSIS: Gallstones with a recent gallstone pancreatitis and possible retained common bile duct stone. POSTOPERATIVE DIAGNOSIS: Cholelithiasis with recent biliary pancreatitis and normal intraoperative cholangiogram. PROCEDURE PERFORMED: Laparoscopic cholecystectomy with intraoperative cholangiogram. SURGEON: Dr. Jordan AUTOMATION QTP TESTER: ANESTHESIA: General. INDICATIONS FOR THE PROCEDURE: The patient is a 29-year-old woman, now about 2 months who had presented with several days of severe upper abdominal pain and was found to have biliary pancreatitis. An MRCP showed no retained common bile duct stones. She has had intermittent pains. She is now for a laparoscopic cholecystectomy with intraoperative cholangiogram. OPERATIVE PROCEDURE: The patient was brought to the operating room and placed on the table in a supine position. She was placed under general endotracheal anesthesia. The patient's abdomen was prepped and draped in a sterile fashion. 0.25% Marcaine was infiltrated at the trocar sites as needed. A short supraumbilical midline incision was made. A Veress needle was inserted and after a positive hanging drop test the abdomen was insufflated with carbon dioxide gas. The fascia was scored along the midline and an 11-mm port was placed without difficulty. The laparoscope was placed and initial examination showed a normal liver. The gallbladder was only partially visible. A 5-mm port was placed in the left upper quadrant and two 5-mm ports were placed in the right upper quadrant. The patient was tilted to a reverse Trendelenburg position and rolled slightly to the left. The edge of the liver was elevated and the gallbladder was grasped at the fundus. The gallbladder appeared to be wrapped in a thin veil of omentum. This was slowly peeled away using primarily hook cautery dissection. The neck of the gallbladder was then identified. A small arch artery was identified coursing along the cystic duct and this was identified and dissected free and then doubly clipped and divided. The cystic duct was clearly identified and this was also clipped near the gallbladder neck. The cystic duct was nicked. There was a small amount of debris released from within the cystic duct. This looked almost like mucousy material in consistency. A balloon cholangiogram catheter was inserted into the cystic duct and down into the area of the junction with the common bile duct. Using fluoroscopy intraoperative cholangiograms were obtained with the injection of 30% Conray. The contrast flowed freely into the duodenum through a normal tapering ampulla. The common bile duct appeared perhaps very slightly larger than normal but there were no filling defects identified. The intrahepatic radicals filled and then emptied readily. The cholangiogram catheter was then removed and the cystic duct was clipped and divided. The gallbladder was then dissected free from the gallbladder bed using cautery dissection. The gallbladder was placed in an Endopouch. The right upper quadrant was irrigated and inspected. A few small points of bleeding on the dissected omentum were controlled. Final inspection showed no evidence of bleeding or bile leak. The patient was returned to a flat position. The abdomen was deflated and the trocars were removed. The gallbladder was recovered through the supraumbilical site and there appeared to be numerous very small stones in the dependent portion of the gallbladder. This was sent for permanent pathology. The fascia at the supraumbilical site was closed with interrupted simple sutures of #2-0 Vicryl. The skin incisions were all closed with buried #4-0 Vicryl and Steri-Strips. Light dressings were applied. The patient tolerated the procedure well without apparent complication. She was awakened in the operating room, extubated and moved to the recovery room in stable condition.
== END 2019-07-19 16:20 | disposition home or self-care (01) ==
LOC: M SDC 10:14
PROVIDERS: ATTEND Surgery
DX: K80.10 Calculus of gallbladder with chronic cholecystitis without obstruction (principal); Z87.891 Personal history of nicotine dependence
CPT/HCPCS: 47563; 74300; 81025; 88304; J0131; J0690; J1100; J2250; J2370; J2405; J2765; J3010; Q9961

== ENCOUNTER 2019-10-06 10:57 | Emergency (ER) | payer OTHER ==
[~2019-10-06] VITALS: Ht 162.6 cm; Wt 73.6 kg
[~2019-10-06 10:57] MED LIST changes: -LR 1,000 ML IV ONE; -ceFAZolin SOD 2 GM in IV 1 EA IV ONE
[2019-10-06] MEDS ORDERED: NS 1,000 ML IV ONE (12:00)
[2019-10-06 12:34] LABS: BASO % 0.4 % (0.0-1.0); EOS # 0.1 10^3/uL (0.0-0.5); EOS % 0.7 % (0.0-3.0); HEMATOCRIT 40.4 % (36.0-47.0); HEMOGLOBIN 13.1 g/dl (12.0-15.5); LYMPH # 1.3 10^3/uL (1.5-5.0); LYMPH % 13.9 % (24.0-44.0); MEAN CORPUSCULAR HEMOGLOBIN 29.3 pg (27.0-33.0); MEAN CORPUSCULAR HGB CONC 32.4 g/dl (32.0-36.5); MEAN CORPUSCULAR VOLUME 90.4 fl (80.0-96.0); MONO # 0.6 10^3/uL (0.0-0.8); MONO % 6.2 % (0.0-5.0); NEUTROPHILS # 7.5 10^3/uL (1.5-8.5); NEUTROPHILS % 78.5 % (36.0-66.0); PLATELET COUNT, AUTOMATED 262 10^3/uL (150-450); RED BLOOD COUNT 4.47 10^6/uL (4.00-5.40); WHITE BLOOD COUNT 9.6 10^3/uL (4.0-10.0)
[2019-10-06] MEDS ORDERED: KETOROLAC 30 MG/ML 1ML VIAL IV ONE (12:45)
[2019-10-06 13:00] LABS: ERYTHROCYTE SEDIMENTATION RATE 5 mm/hr (0-20)
[2019-10-06 13:55] LABS: C REACTIVE PROTEIN QUANTITATIV 0.36 MG/DL (0.00-0.30); FREE T4 1.19 NG/DL (0.76-1.46); THYROID STIMULATING HORMONE 0.331 uIU/ML (0.358-3.740)
[2019-10-06] MEDS ORDERED: KETO10TAB PO (14:42)
[2019-10-06 14:58] VITALS: BP 129/81
[2019-11-10] MEDS ORDERED: MIRE1IUD IU (13:49)
== END 2019-10-06 14:59 | disposition home or self-care (01) ==
LOC: M ED 10:57
DX: R51 Headache (principal); Z86.69 Personal history of other diseases of the nervous system and sense organs
CPT/HCPCS: 80047; 84439; 84443; 84702; 85025; 85652; 86140; 96361; 96374; 99284; J1885

== ENCOUNTER 2019-11-14 08:48 | Day surgery (SDC) | payer OTHER ==
[~2019-11-14] VITALS: Ht 162.6 cm; Wt 71.1 kg
[~2019-11-14 08:48] MED LIST changes: +KETO10TAB PO; +MIRE1IUD IU
[2019-11-14] MEDS ORDERED: NS 1,000 ML IV ONE (09:15)
[2019-11-14] MEDS ORDERED: LIDOCAINE 2% 100MG/5ML SDV (FOR ANES.) As Ordered ONE (10:08)
[2019-11-14] MEDS ORDERED: fentaNYL 100 MCG/2 ML INJECTION (J3010) As Ordered ONE (10:08)
[2019-11-14] MEDS ORDERED: propofoL 500 MG/50 ML VIAL As Ordered ONE (10:08)
[2019-11-14] MEDS ORDERED: propofoL 200 MG/20 ML VIAL As Ordered ONE (10:31)
[2019-11-14 11:11] VITALS: BP 102/64
--- NOTE | 2019-12-30 14:17 | ROOR ---
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 Procedure: Pre-Anesthesia Assessment: - The heart rate, respiratory rate, oxygen saturations, blood pressure, adequacy of pulmonary ventilation, and response to care were monitored throughout the procedure. The Endoscope was introduced through the mouth, and advanced to the second part of duodenum. The upper GI endoscopy was accomplished without difficulty. The patient tolerated the procedure well. Findings: The Z-line was variable and was found 40 cm from the incisors. Multiple biopsies were obtained with cold forceps for evaluation to rule out Hugo's Esophagus randomly at the gastroesophageal junction. A small hiatal hernia was present. No other significant abnormalities were identified in a careful examination of the stomach. Biopsies were taken with a cold forceps in the gastric antrum for Helicobacter pylori testing. The exam of the duodenum was otherwise normal. Biopsies for histology were taken with a cold forceps in the first portion of the duodenum for evaluation of celiac disease. The exam was otherwise without abnormality. Impression: - Z-line variable, 40 cm from the incisors. - Small hiatal hernia. - The examination was otherwise normal. - Multiple biopsies were obtained at the gastroesophageal junction. - Biopsies were taken with a cold forceps for Helicobacter pylori testing. - Biopsies were taken with a cold forceps for evaluation of celiac disease. - The examination was otherwise normal. Recommendation: - Patient has a contact number available for emergencies. The signs and symptoms of potential delayed complications were discussed with the patient. Return to normal activities tomorrow. Written discharge instructions were provided to the patient. - High fiber diet. - Discharge patient to home. - Follow an antireflux regimen. - Continue present medications. - Await pathology results. - Telephone GI clinic for pathology results in 1 week. - Return to referring physician. - The findings and recommendations were discussed with the patient. Everardo Gruber MD Everardo Gruber MD 11/14/2019 10:24:13 AM Number of Addenda: 0 Note Initiated On: 11/14/2019 9:30 AM Estimated Blood Loss: Estimated blood loss: none.
--- NOTE | 2019-12-30 14:21 | ROOR ---
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 Procedure: Pre-Anesthesia Assessment: - The heart rate, respiratory rate, oxygen saturations, blood pressure, adequacy of pulmonary ventilation, and response to care were monitored throughout the procedure. The Colonoscope was introduced through the anus and advanced to the terminal ileum, with identification of the appendiceal orifice and IC valve. The colonoscopy was performed without difficulty. The patient tolerated the procedure well. The quality of the bowel preparation was excellent. Findings: The perianal and digital rectal examinations were normal. Non-bleeding internal hemorrhoids were found during retroflexion. The hemorrhoids were small and Grade I (internal hemorrhoids that do not prolapse). No other significant abnormalities were identified in a careful examination of the remainder of the colon. The terminal ileum appeared normal. Biopsies for histology were taken with a cold forceps from the ascending colon, transverse colon and descending colon for evaluation of microscopic colitis. The exam was otherwise without abnormality. Impression: - Non-bleeding internal hemorrhoids. - The examined portion of the ileum was normal. - The examination was otherwise normal. - Biopsies were taken with a cold forceps from the ascending colon, transverse colon and descending colon for evaluation of microscopic colitis. - The exam was otherwise normal to the cecum. Recommendation: - Patient has a contact number available for emergencies. The signs and symptoms of potential delayed complications were discussed with the patient. Return to normal activities tomorrow. Written discharge instructions were provided to the patient. - High fiber diet. - Discharge patient to home. - Continue present medications. - Await pathology results. - Telephone GI clinic for pathology results in 1 week. - Repeat colonoscopy at age 51 for screening purposes. - Return to referring physician. - The findings and recommendations were discussed with the patient. Everardo Gruber MD Everardo Gruber MD 11/14/2019 10:37:52 AM Number of Addenda: 0 Note Initiated On: 11/14/2019 9:29 AM Estimated Blood Loss: Estimated blood loss: none.
== END 2019-11-14 11:40 | disposition home or self-care (01) ==
LOC: M OPP 08:48
PROVIDERS: ATTEND Internal Medicine Gastroenterology
DX: K64.0 First degree hemorrhoids (principal); R10.30 Lower abdominal pain, unspecified; K22.8 Other specified diseases of esophagus; K44.9 Diaphragmatic hernia without obstruction or gangrene; R19.7 Diarrhea, unspecified; R10.13 Epigastric pain; K21.9 Gastro-esophageal reflux disease without esophagitis; Z87.891 Personal history of nicotine dependence
CPT/HCPCS: 43239; 45380; 88305; J3010

== ENCOUNTER → 2020-09-27 | Outpatient (CLI) | payer OTHER ==
[~2020-09-27] MED LIST changes: +E-Z-GAS II EFFERVESCENT PACKET (SODIUM BICARB./CITRIC ACID/SIMETHICONE) As Ordered ONE; +E-Z-HD 98% w/w 340GM SUSP BTL As Ordered ONE; +E-Z-PAQUE 96% w/w SUSP 176GM BTL As Ordered ONE
--- NOTE | 2020-09-28 11:15 | REP ---
INDICATION: IBS W/ DIARRHEA. COMPARISON: None. TECHNIQUE: The procedure was performed under the direct supervision of Dr. Mai. The images were reviewed with Dr. Mai. Liquid barium and gas producing crystals were given in the erect position as well as liquid barium in the prone oblique position in order to perform a double contrast upper GI examination. Additionally liquid barium was given at the end of the examination in order to perform a small bowel follow through. A combination od fluoroscopy, spot films and last image hold technology was utilized, 2.5 minutes of fluoro time was utilized for this procedure. FINDINGS: The kettle chipper film shows no organomegaly or pathological masses. The intestinal gas pattern is non-specific. There are surgical clips noted in the right upper quadrant. The oral and pharyngeal stages of deglutition are unremarkable. Esophageal transport is prompt and efficient and there is no esophagitis, stricture, mucosal ring or hiatal hernia. The stomach donnelly are normally outlined. The rugal folds are smooth and regular. There is no gastritis neoplasm or ulcer disease. Within the duodenum there are thickened folds which may represent duodenitis. There is no edwin ulcer identified. The visualized portion of the proximal small bowel appears normal in course and caliber. The barium column was followed through the small bowel to the level of the terminal ileum. Small bowel transit time is approximately 1 hour. During fluoroscopy gentle palpation shows all loops are freely movable and pliable. There are no fixed or angulated loops. The small bowel mucosal pattern is normal in course and caliber. There is no transition to suggest a partial small-bowel obstruction. Spot filming of the terminal ileum shows it to be unremarkable. IMPRESSION: There are thickened folds in the duodenum which may represent duodenitis. Otherwise unremarkable double-contrast upper GI and small-bowel follow-through examination.. <Electronically signed by Rios Espino > 09/27/20 1708 <Electronically signed by Jose Mai > 09/28/20 1112
== END ==
LOC: M RAD 08:42
PROVIDERS: ATTEND Internal Medicine Gastroenterology
DX: K58.0 Irritable bowel syndrome with diarrhea (principal)

== ENCOUNTER → 2020-11-01 | Outpatient (CLI) | payer OTHER ==
[~2020-11-01] MED LIST changes: -E-Z-GAS II EFFERVESCENT PACKET (SODIUM BICARB./CITRIC ACID/SIMETHICONE) As Ordered ONE; -E-Z-HD 98% w/w 340GM SUSP BTL As Ordered ONE; -E-Z-PAQUE 96% w/w SUSP 176GM BTL As Ordered ONE; +GASTROGRAFIN SOLUTION 30ML (Q9963) As Ordered ONE; +ISOVUE-370 76% 100ML VIAL As Ordered ONE
--- NOTE | 2020-11-01 19:02 | REP ---
INDICATION: ABD PAIN. COMPARISON: Gallbladder ultrasound dated 06/14/2019. TECHNIQUE: Abdomen/pelvis CT without and with IV contrast and with bowel contrast. The abdomen, not including the pelvis is initially scanned without IV contrast but with bowel contrast. This is followed by scanning of the abdomen and pelvis with IV and bowel contrast. FINDINGS: The visualized lung jones are unremarkable. The hepatic parenchyma is homogeneous. There are surgical clips in the gallbladder fossa. The pancreas and spleen are unremarkable. There is a minimal volume of body fat tissue planes. The adrenals and kidneys are unremarkable. The abdominal aorta is unremarkable. There is no periaortic adenopathy or mass. There is no bowel distention or obstruction. No ascites. Pelvis: The terminal ileum is unremarkable. The appendix is not visualized. There is no pericecal inflammation, abscess or free fluid. There is no pelvic ascites or adenopathy. The uterus, adnexa and bladder are unremarkable. There is wall thickening of the descending colon. This is nonspecific and could be artifact from peristalsis or could represent infectious versus inflammatory colitis in the appropriate clinical setting. IMPRESSION: Cholecystectomy. Wall thickening of the descending colon, nonspecific, peristalsis versus infectious versus inflammatory colitis. No adenopathy, ascites or mass. No bowel distention or obstruction. Uterus and adnexa are unremarkable. Minimal intraperitoneal body fat tissue planes returning the study technically difficult. <Electronically signed by Jose Ordaz > 11/01/20 [id number]
== END ==
LOC: M RAD 16:17
PROVIDERS: ATTEND Family Medicine
DX: R10.9 Unspecified abdominal pain (principal)